=== PATIENT | female | born 1955 | race Caucasian/White ===

== ENCOUNTER 2016-09-06 17:47 | Inpatient (IN) | payer MEDICARE, OTHER ==
[~2016-09-06] VITALS: Ht 157.5 cm; Wt 73.6 kg
--- NOTE | ~2016-09-06 | WRIGHTHP ---
[place], [place] PATIENT HISTORY AND PHYSICAL EXAM NAME: [id number] UNIT #: [id number] ROOM: 312 DOCTOR: RAISA LEONARD MD BIRTHDATE: [birth year] DOS: 09/06/2016 CHIEF COMPLAINT: I cannot sleep. HISTORY OF PRESENT ILLNESS: The patient is [id number] lady with history of schizoaffective disorder. She has been noncompliant with her medicines and has been decompensating with increased psychosis, had not been taking care of her ADLs, not bathing, with very poor hygiene and she has been hallucinating as per report, she was taken to the [facility] and then transferred to Behavioral Health Unit at [facility]. Today seen, she is very disorganized in her thoughts. She is irritable, agitated, very confused, could not give any useful information, is getting agitated and paranoid. She is crying at times. States that she cannot sleep. She has been agitated at times and nondirective. She has been refusing her medicines now she is admitted to rule out any organic factors and also attempt to stabilize on medicines. MEDICAL HISTORY: Hypertension, GERD and seizure disorder. MENTAL STATUS EXAMINATION: The patient is awake, oriented to self, but she could not tell the time and the date. She is disheveled refused to take shower this morning. Poor hygiene. She is confused, very disorganized in her thoughts and behavior, paranoid, very labile and at times seemed responding to unseen. She has a very poor judgment and insight. DIAGNOSIS: Schizoaffective disorder is in exacerbation. PLAN: She has been started on Invega, Remeron and Cogentin. The question would be the compliance, so we should pursue her to take her medicines and follow up also shall try to engage her in fowler milieu as she is more stable. RAISA LEONARD MD CM:HISPHYS:PATIENT HISTORY AND PHYSICAL EXAMINATION [id number] RAISA LEONARD MD 09/07/16 1202 interface
--- NOTE | ~2016-09-06 | PR ---
[place], [place] PROGRESS NOTE NAME: RAHEEL GASTON UNIT #: [id number] ROOM: 312 DOCTOR: MATEUSZ CHURCH BIRTHDATE: [birth year] DOS: 09/12/2016 CHIEF COMPLAINT: She was crying. SUMMARY OF VISIT: The patient was assessed in the dining room where I approached her, and I said are you not hungry because her plate was hardly touched. She started crying and she said I said the wrong thing when I asked her to elaborate; she just repeated I said the wrong thing and was tearful and then will calm down. MENTAL STATUS: Alert and oriented to person, place, I do not know about time. Mood still labile. We have moments of clarity in good conversation and other times just gibberish. PLAN: Discussed with Dr. Hull, we are going to go ahead and increase the Nuedexta to q. 12 hours, see if we can decrease maybe this pseudobulbar affect that she is having. We will continue to try to engage in individual and fowler milieu therapy. Try to redirect her to discharge once stable. OLIVERIO CHURCH CNP CM:PNTRANS 2 MATEUSZ CHURCH 09/12/16921 interface
--- NOTE | ~2016-09-06 | PR ---
[place], [place] PROGRESS NOTE NAME: RAHEEL GASTON UNIT #: [id number] ROOM: 312 DOCTOR: FERMIN CARLISLE MD BIRTHDATE: [birth year] DOS: 09/10/2016 INTERVAL NOTE CHIEF COMPLAINT: "I don't know what to do. I just do not know what to do." SUMMARY OF THE VISIT: The patient was interviewed in the dining area where she once again became very emotional upon approach. Of note, while she seemed to be crying, no tears were in her eyes and nurses report very similar episodes where she seems to be very depressed and despondent, crying, but yet no tears are there. These seemed to be involuntary episodes that are occurring without her control. MENTAL STATUS: She is alert and oriented with time gaps. Mood does seem to be depressed with anxious overtones. There also seems to be a degree of emotional excessive lability that is not under her control. PLAN: I will discontinue Geodon because it can prolong QT. Add the diagnosis of pseudobulbar affect and start Nuedexta 20-10 one tablet daily. I will use Vraylar 1.5 mg at bedtime to decrease the psychosis without the extreme risk of QT prolongation. Engage in individual and fowler milieu activity with the plan to return home or to alternative placement when stable. FERMIN CARLISLE MD CM:PNTRANS [phone] FERMIN CARLISLE MD 09/11/16 0159 interface
--- NOTE | ~2016-09-06 | PR ---
[place], [place] PROGRESS NOTE NAME: [id number] UNIT #: [id number] ROOM: 312 DOCTOR: AISHA GOMES,RAISA BIRTHDATE: [birth year] DOS: SUBJECTIVE: A 61-year-old lady admitted with worsening symptoms of schizoaffective disorder, she is started on Invega and Remeron. Seen today, she is still very disorganized in her thoughts. Could not hold any meaningful conversation, still crying at times, is agitated easy, very confused. She did take her medicines today. MENTAL STATUS EXAM: The patient is awake, still very disorganized in her thoughts. There is thought blocking, could not hold any meaningful conversation at present. PLAN: The patient needs further stabilization, so we shall continue with her medicines and monitor progress. Shall try engage her in fowler milieu when she is more stable. RAISA LEONARD MD CM:PNTRANS [id number] RAISA LEONARD MD 09/08/16 1444 interface
--- NOTE | ~2016-09-06 | PR ---
[place], [place] PROGRESS NOTE NAME: RAHEEL GASTON UNIT #: [id number] ROOM: 312 DOCTOR: FERMIN CARLISLE MD BIRTHDATE: [birth year] DOS: 09/16/2016 INTERVAL NOTE CHIEF COMPLAINT: "I am okay." SUMMARY OF THE VISIT: The patient was interviewed in the dining area where she was eating her breakfast. She appeared to be tearing pancake and was perhaps offering it to unforeseen others underneath the table. She was rather guarded and was not openly engaging with me. Her responses tended to be short and simple. There was no excessive of emotionality, crying, yelling out noted. If anything, she was more dismissive of me visiting her. She was tolerating the medication well. I see no extrapyramidal symptoms, tardive dyskinesia, somnolence, or sedation. MENTAL STATUS: She was alert and oriented to person, place, possibly to time. Mood does seem to be trending towards euthymia. There still seems to be some active psychotic symptoms present. The excessive emotionality seen much less this morning, but I think it tends to wax and wane. Memory is relatively intact. PLAN: I will increase Vraylar from 4.5 to 6 mg at bedtime, maintaining all the other psychotropics, continue to engage her in individual and fowler milieu activity with the plan to step down to a least restrictive environment when psychiatrically stable. FERMIN CARLISLE MD CM:PNTRANS [phone] FERMIN CARLISLE MD 09/16/162058 interface
--- NOTE | ~2016-09-06 | PR ---
[place], [place] PROGRESS NOTE [id number] UN[facility] #: [id number] ROOM: 312 DOCTOR: MATEUSZ CHURCH BIRTHDATE: [birth year] DOS: 09/11/2016 CHIEF COMPLAINT: "Good morning." SUMMARY OF VISIT: The patient interviewed in the dining room where she had finished her breakfast. The patient engaged readily in conversation, kind of limited, one or two-word answers, but were appropriate. MENTAL STATUS: Alert and oriented to person, place. I do not know about time. Mood still seems somewhat depressed, maybe some underlying anxiety. Staff notes that she did not sleep very well last night; however, there were some disturbances on the unit last night and nobody really slept well. We will see how she does tonight and determine if we need to adjust nighttime medications. PLAN: Vraylar was started to help with psychosis, see how she does over the next 24 hours and we can adjust from there. OLIVERIO CHURCH CNP CM:PNTRANS [id number] MATEUSZ CHURCH 09/11/16 2302 interface
--- NOTE | ~2016-09-06 | PR ---
[place], [place] PROGRESS NOTE NAME: RAHEEL GASTON UNIT #: [id number] ROOM: 312 DOCTOR: MATEUSZ CHURCH BIRTHDATE: [birth year] DOS: 09/14/2016 CHIEF COMPLAINT: "Oh I'm not well." SUMMARY OF VISIT: The patient was interviewed in the conference room across in the nurses' station where she was eating breakfast alone, very anxious, agitated, not quite crying, but ramping herself up, soft spoken, everything is wrong, everything is overwhelming. There is nothing we can do to help her, can be very somatic in some of her statements, very difficult to redirect. MENTAL STATUS: Alert and oriented with gaps. There is no alma delia or hypomania. It is just she still seems fixated on things at times not as bad as she was, but still fixated. PLAN: Dr. Hull increased her Vraylar yesterday and changed her Depakote to Depakote ER. I am going to add p.r.n. Ativan to help with this agitation and anxiety that she gets and when she is difficult to redirect, see if we can calm her down a little bit. She is adamant today. There is nothing we can do to help her. We will continue to try to engage in individual and fowler milieu therapy, redirect when possible and go from there. OLIVERIO CHURCH CNP CM:PNTRANS [id number] MATEUSZ CHURCH 09/15/16 0016 interface
--- NOTE | ~2016-09-06 | PR ---
[place], [place] PROGRESS NOTE NAME: RAHEEL GASTON UNIT #: [id number] ROOM: 312 DOCTOR: FERMIN CARLISLE MD BIRTHDATE: [birth year] DOS: 09/09/2016 INTERVAL NOTE CHIEF COMPLAINT: "Everything is wrong, leave me alone. I am not eating. I am not taking any meds, just leave me alone." SUMMARY OF THE VISIT: The patient was attempted to be interviewed as she sat in the quiet room. She had an entire breakfast tray in front of her, but would not eat it. She was very distraught and disturbed. She was not able to respond appropriately to my questions. She was grossly psychotic and delusional and jumped from topic to topic. Her responses were filled with marked delusions and paranoia. Nurses report that she has required several PRNs of Geodon intramuscular with excellent results and wondered whether or not a straight oral Geodon would be beneficial as she seems to be getting more benefit from the Geodon IM than from the straight Invega. MENTAL STATUS: She is alert and oriented to person, place, but not time. Mood is wildly labile. Affect is inappropriate. She is grossly psychotic and delusional, very paranoid. It is hard to ascertain memory as she is so disoriented and disjointed. PLAN: At this point in time, I will discontinue her Invega due to ineffectiveness and discontinue her straight Ativan. I will go ahead and order Geodon 80 mg twice daily. Continue to support and monitor. Engage in individual and fowler milieu activity. We will also explore with hospital social worker the possibility of placement as I am uncertain how much of this is going to clear and how much will be residual psychosis. FERMIN CARLISLE MD CM:PNTRANS 4 22 FERMIN CARLISLE MD 09/09/162121 interface
--- NOTE | ~2016-09-06 | PR ---
[place], [place] PROGRESS NOTE NAME: RAHEEL GASTON UNIT #: [id number] ROOM: 312 DOCTOR: MATEUSZ CHURCH BIRTHDATE: [birth year] DOS: 09/18/2016 CHIEF COMPLAINT: "Good morning." SUMMARY OF VISIT: The patient was assessed in the dining room where she was eating breakfast. Other than saying good morning, the patient did not engage at all in conversation; however, she has been the best that she has been since being here. She was eating her breakfast. She was focusing on that. She does redirect herself and take herself to the room when she becomes tearful. She listened to some of my other conversations with the patients and smiled, therefore what I have written today, she just did not feel like talking. MENTAL STATUS: Alert and oriented with time gaps. Mood is still trending towards euthymic. Affect was appropriate. No alma delia or hypomania. No auditory or visual hallucinations, delusions, or paranoia. PLAN: Her valproic acid level was still subtherapeutic at 35.4 yesterday. However, this is an increase from 9.2 just 10 days before. So, we are trending upward. We will continue to monitor. At this point, I am going to hold her Depakote where it is at and will recheck again most likely in 10 days. The patient continues to be stable, most likely we will discharge to [id number] as early as tomorrow. OLIVERIO CHURCH CNP CM:PNTRANS [phone] MATEUSZ CHURCH 10/23/16 1102 interface
--- NOTE | ~2016-09-06 | PR ---
[place], [place] PROGRESS NOTE NAME: RAHEEL GASTON UNIT #: [id number] ROOM: 312 DOCTOR: FERMIN CARLISLE MD BIRTHDATE: [birth year] DOS: 09/13/2016 INTERVAL NOTE CHIEF COMPLAINT: "I didn't sleep last night." SUMMARY OF THE VISIT: The patient was interviewed in the dining area where she was sitting in front of her breakfast. She engaged readily in reasonable conversation, reporting to me that she did not sleep last night, but this has been a lengthy issue for her even when she was home. Of note is that she carried on a reasonable conversation with me not once crying, not once becoming hysterical. She spoke in a very soft voice and was able to elucidate her thoughts and feelings fairly well. Outside of not sleeping, she voiced no other complaints. MENTAL STATUS: She is alert and oriented with time gaps. Mood does seem to be trending towards euthymia. Affect is more appropriate. There are no symptoms of alma delia or hypomania noted at this time and the psychotic symptoms seem to be dissipating. Memory has some gaps. PLAN: I will increase Vraylar from 3 mg at bedtime to 4.5 mg at bedtime attempting to max out at 6 mg a day to achieve full benefit of the atypical antipsychotic. I will discontinue her regular Depakote and use Depakote ER 1000 mg at bedtime for simplification of her medication regimen and also to add extra sedation at night and less so during the day. We will engage her in individual and fowler milieu activity with the plan to return home or to an alternative placement when stable. DIAGNOSIS: Alzheimer's dementia. FERMIN CARLISLE MD CM:PNTRANS [phone] FERMIN CARLISLE MD 09/16/16 1210 interface
--- NOTE | ~2016-09-06 | DS ---
[place], [place] DISCHARGE SUMMARY NAME: RAHEEL GASTON UNIT #: [id number] ROOM: 312 DOCTOR: MATEUSZ CHURCH OLIVERIO BIRTHDATE: [birth year] DOS: 09/19/2016 HISTORY OF PRESENT ILLNESS: A 61-year-old female with a history of schizoaffective disorder, noncompliant with medications has been decompensating the increased psychosis, not taking care of her ADLs, not bathing, poor hygiene, hallucinating, was taken to [facility], transferred to Behavioral Health Unit at [place]. Initially seen with disorganized thoughts, irritable, agitated, very confused, crying, refusing medications at times, was admitted to rule out organic factors and stabilize the medications. PLAN: She was started on Invega, Remeron and Cogentin eventually ended up taking Vraylar, Klonopin, Depakote, and Nuedexta for the increased emotionality with the underlying neurologic conditions and Remeron for sleep. We used behavioral therapy to redirect her when she became tearful and behavioral and she would remove herself from the situation, calm herself down and then reenter the groups. MEDICAL HISTORY: Hypertension, GERD, seizure disorder. DIAGNOSIS: AXIS I: Schizoaffective disorder with exacerbation. MENTAL STATUS: The patient is alert and oriented to person, place, approximate to time. Mood is euthymic. Affect appropriate. No overt signs of auditory or visual hallucinations, delusions, paranoia, alma delia or hypomania. She is at her baseline at this point in time. PLAN: The patient is being discharged to [facility]. They will need to check her valproic acid level in 10 days and then q.3 months as long as she is on Depakote. We will continue with the Vraylar, the Klonopin for mood lability, Nuedexta for PBA, Remeron for depression, sleep and keep her appetite up. Dr. Hull and myself are around at the facilities so we will follow up with her at the facility. [place], [place] DISCHARGE SUMMARY NAME: RAHEEL GASTON UNIT #: [id number] ROOM: 312 DOCTOR: MATEUSZ CHURCH OLIVERIO BIRTHDATE: [birth year] OLIVERIO CHURCH CNP CM:ALBER 5 11 MATEUSZ CHURCH 09/19/161810 interface
--- NOTE | ~2016-09-06 | PR ---
[place], [place] PROGRESS NOTE [id number] UN[facility] #: [id number] ROOM: 312 DOCTOR: FERMIN CARLISLE MD BIRTHDATE: [birth year] DOS: 09/17/2016 INTERVAL NOTE CHIEF COMPLAINT: "Oh thank you for stopping in." SUMMARY OF THE VISIT: The patient was interviewed in the group therapy room. I inverted her to come into the dining area at which point, she stated that she was hoping to have breakfast there. When I apologized to her that I did not know, she engaged in a very meaningful conversation stating that there is no need for me to apologize and thanking me for coming and visiting her. This was one of the most meaningful conversations I have had with her since her admission here. There is no mood lability, no agitation. She was actually able to engage readily in conversation and be spontaneous in her comments to me. Nurses report a similar trend toward improvement and that overall, she has trended strongly towards euthymia and has been much more redirectable. She is tolerating the current medication regimen well and I see no sedation, somnolence, extrapyramidal symptoms or any other type of side effects. MENTAL STATUS: This morning, she is alert and oriented with some time gaps. Mood does seem to be strongly trending towards euthymia. Affect is much more appropriate. There are no symptoms of hypomania or alma delia. There are no auditory or visual hallucinations. No delusions or paranoia were present. Short term memory has gaps, otherwise she is intact. PLAN: I will recheck a valproic acid level today at 3:00 p.m. that should give me a trough level with her being on the Depakote ER. I will adjust the Depakote accordingly, maintain all of her psychotropics at their current doses at this time with the plan then to discharge when psychiatrically stable. FERMIN CARLISLE MD CM:PNTRANS [phone] FERMIN CARLISLE MD 09/17/168 interface
--- NOTE | ~2016-09-06 | PR ---
[place], [place] PROGRESS NOTE NAME: [id number] UN[facility] #: [id number] ROOM: 312 DOCTOR: MATEUSZ CHURCH OLIVERIO BIRTHDATE: [birth year] DOS: 09/15/2016 CHIEF COMPLAINT: "Good morning." SUMMARY OF VISIT: The patient was assessed in the dining room and then in her room. She did engage in conversation. She can get tearful and dramatic at times, but then she will remove herself to her room. I discussed with nursing. They have been working with her over this weekend with behavior modification where she becomes disruptive, crying, behavioral. She was advised she could not do in the common area around other people and that she would have to isolate herself in her room on her own and the patient has been compliant with this. When she becomes anxious or agitated, she will remove herself from the situation and go to her room until she is calm and then come back out and she voices understanding of this. This is the first time the patient has done this, so the nursing are definitely on the right track with her on this. It should be noted also that they are using p.r.n. Ativan on a regular basis and this seems to take the edge off of her mood lability. Vistaril is not touching her. MENTAL STATUS: She is alert and oriented to person, place, approximate time. There is no alma delia or hypomania. No overt signs of auditory or visual hallucinations. She is still having some mood lability. PLAN: She is currently on Vraylar and we are going to go ahead and change the Depakote to Sprinkles per nursing's request. I am going to get rid of the Vistaril since this is not touching her. I am going to keep the Ativan p.r.n. even though they are using it fairly scheduled right now, but what I am going to do is I am going to add Klonopin 1 mg b.i.d. to see if this will help with her mood lability, take the edge off and then you could have the p.r.n. Ativan to come in underneath if we need to when she becomes anxious. Klonopin, just because it is longer acting and it tends to help more with this type of mood lability. We will continue to do the behavior modifications and redirections and see how she does over the next 24 hours. OLIVERIO CHURCH CNP CM:PNTRANS [phone] MATEUSZ CHURCH 09/15/16 2250 interface
[2016-09-06] MEDS ORDERED: ATORVASTATIN CA20 M1 PO (18:07)
[2016-09-06] MEDS ORDERED: PHENYTEK200 MG PO (18:09)
[2016-09-06] MEDS ORDERED: DAILY VALUE1 EACH PO (18:11)
[2016-09-06] MEDS ORDERED: OMEPRAZOLE20 M2 PO (18:12)
[2016-09-06] MEDS ORDERED: VITAMIN B-121000 MC1 SL (18:13)
[2016-09-06] MEDS ORDERED: BENZTROPINE MESY2 MG PO (18:14)
[2016-09-06] MEDS ORDERED: BISACODYL5 MG PO (18:15)
[2016-09-06] MEDS ORDERED: GOOD NEIGHBOR150 MG PO (18:16)
[2016-09-06] MEDS ORDERED: CALCIUM500 M1 PO (18:17)
[2016-09-06] MEDS ORDERED: DEPAKOTE250 MG PO (18:18)
[2016-09-06] MEDS ORDERED: ALBUTEROL2.5 MG/0.5 INH (18:33)
[2016-09-06 21:06] VITALS: BP 115/83
[2016-09-06 22:04] LABS: BASO # 0.1 10*3/uL (0.0-0.1); BASO % 0.7 % (0.0-1.0); EOS # 0.1 10*3/uL (0.0-0.4); HEMATOCRIT 46.1 % (37.0-47.0); HEMOGLOBIN 15.1 g/dl (12.0-16.0); LYMPH # 4.4 10*3/uL (1.3-4.4); LYMPH % 33.2 % (27.0-41.0); MEAN CELL VOLUME 90.4 fl (81.0-99.0); MEAN CORPUSCULAR HGB 29.6 pg (27.0-31.0); MEAN CORPUSCULAR HGB CONC 32.8 g/dl (33.0-37.0); MEAN PLATELET VOLUME 8.9 fl (9.6-12.3); MONO % 7.7 % (3.0-9.0); NEUT # 7.7 10*3/uL (2.3-7.9); NEUT % 57.1 % (47.0-73.0); PLATELET COUNT AUTOMATED 391 10*3/uL (130-400); RED CELL DISTRI WIDTH 12.8 % (0-14.5); WHITE BLOOD COUNT 13.4 10*3/uL (4.8-10.8)
[2016-09-06 22:24] LABS: ALBUMIN 4.1 gm/dl (3.1-4.5); ALKALINE PHOSPHATASE 119 U/L (45-117); BILIRUBIN, TOTAL 0.3 mg/dl (0.2-1.0); BUN 21 mg/dl (7-24); CARBON DIOXIDE 24 mmol/L (21-32); CHLORIDE 107 mmol/L (98-107); EST GLOM FILT AFRICAN AMERICAN > 60 ml/min; GLUCOSE 119 mg/dL (65-99); POTASSIUM 4.2 mmol/L (3.5-5.1); SGOT/AST 18 IU/L (3-35); SGPT/ALT 31 U/L (12-78); SODIUM 144 mmol/L (136-145); TOTAL PROTEIN 8.7 gm/dL (6.4-8.2)
[2016-09-06 22:29] LABS: HEMOGLOBIN A1c 5.9 % (4.8-5.6)
[2016-09-06 22:30] LABS: THYROID STIM HORMONE (HS) 3.46 uIU/ml (0.358-4.75)
[2016-09-06 22:43] LABS: VITAMIN D, 25-HYDROXY 33.8 ng/mL (30-100)
[2016-09-06 22:57] LABS: FOLIC ACID > 24.00 ng/mL (>5.38)
[2016-09-07 06:42] LABS: BASO # 0.1 10*3/uL (0.0-0.1); BASO % 0.8 % (0.0-1.0); EOS # 0.2 10*3/uL (0.0-0.4); HEMATOCRIT 45.9 % (37.0-47.0); HEMOGLOBIN 15.2 g/dl (12.0-16.0); LYMPH # 4.3 10*3/uL (1.3-4.4); LYMPH % 40.4 % (27.0-41.0); MEAN CELL VOLUME 90.4 fl (81.0-99.0); MEAN CORPUSCULAR HGB 29.9 pg (27.0-31.0); MEAN CORPUSCULAR HGB CONC 33.1 g/dl (33.0-37.0); MEAN PLATELET VOLUME 8.6 fl (9.6-12.3); MONO # 0.9 10*3/uL (0.1-1.0); MONO % 8.3 % (3.0-9.0); NEUT # 5.1 10*3/uL (2.3-7.9); NEUT % 48.1 % (47.0-73.0); PLATELET COUNT AUTOMATED 396 10*3/uL (130-400); RED BLOOD COUNT 5.08 10*6/uL (4.10-5.10); RED CELL DISTRI WIDTH 12.6 % (0-14.5); WHITE BLOOD COUNT 10.7 10*3/uL (4.8-10.8)
[2016-09-07 07:17] LABS: BUN 21 mg/dl (7-24); CARBON DIOXIDE 22 mmol/L (21-32); CHLORIDE 108 mmol/L (98-107); EST GLOM FILT AFRICAN AMERICAN > 60 ml/min; GLUCOSE 142 mg/dL (65-99); POTASSIUM 4.3 mmol/L (3.5-5.1); SODIUM 145 mmol/L (136-145)
[2016-09-07 08:06] VITALS: BP 133/88
[2016-09-07 18:19] LABS: BILIRUBIN 2+ (NEGATIVE); BLOOD NEGATIVE (NEGATIVE); CLARITY CLOUDY (CLEAR); COLOR YELLOW (YELLOW); GLUCOSE NEGATIVE (NEGATIVE); KETONE 1+ (NEGATIVE); LEUKO ESTERASE NEGATIVE (NEGATIVE); NITRITE NEGATIVE (NEGATIVE); PROTEIN 2+ (NEGATIVE); SPECIFIC GRAVITY >= 1.030 (1.005-1.030); UROBILINOGEN 0.2 E.U./dl (0.2-1.0)
[2016-09-07 18:31] LABS: BACTERIA 3+; HYALINE CAST 20-25; URINE REFLEX COMMENT YES (NO)
[2016-09-07 20:02] VITALS: BP 110/71
[2016-09-08 07:52] VITALS: BP 136/72
[2016-09-08 19:54] VITALS: BP 124/75
[2016-09-09 07:53] VITALS: BP 131/77
[2016-09-09] MEDS ORDERED: LEVOTHYROXINE0.05 MG PO (16:56)
[2016-09-09] MEDS ORDERED: PHENYTOIN100 MG PO (17:41)
[2016-09-09 20:19] VITALS: BP 101/56
[2016-09-10 08:09] VITALS: BP 132/72
[2016-09-10 20:00] VITALS: BP 121/86
[2016-09-11 07:59] VITALS: BP 109/72
[2016-09-11 20:00] VITALS: BP 106/56
[2016-09-12 08:30] VITALS: BP 115/77
[2016-09-12 20:00] VITALS: BP 123/70
[2016-09-13 08:17] VITALS: BP 116/72
[2016-09-13 20:00] VITALS: BP 131/67
[2016-09-14 07:48] VITALS: BP 141/74
[2016-09-14 19:52] VITALS: BP 101/60
[2016-09-15 07:56] VITALS: BP 132/76
[2016-09-15 20:10] VITALS: BP 118/68
[2016-09-16 09:30] VITALS: BP 100/65; BP 119/62
[2016-09-16 19:38] VITALS: BP 115/83
[2016-09-17 08:14] VITALS: BP 118/75
[2016-09-17 19:43] VITALS: BP 123/70
[2016-09-18 07:59] VITALS: BP 113/72
[2016-09-18 19:51] VITALS: BP 104/58
[2016-09-19 07:39] VITALS: BP 116/65
[2016-09-19] MEDS ORDERED: BENZTROPINE MESY1 MG PO (08:11)
[2016-09-19] MEDS ORDERED: MIRTAZAPINE15 M2 PO (08:11)
[2016-09-19] MEDS ORDERED: CLONAZEPAM1 MG PO (08:11)
[2016-09-19] MEDS ORDERED: NUED1CAP PO (08:11)
[2016-09-19] MEDS ORDERED: DEPAKOTE ER500 MG PO (08:11)
[2016-09-19] MEDS ORDERED: VRAYLAR6 MG PO (08:11)
== END 2016-09-19 14:00 | disposition other institution (70) | DRG 885 ==
LOC: 3N 17:47
PROVIDERS: Family Medicine; Psychiatry & Neurology Psychiatry
DX: F25.9 Schizoaffective disorder, unspecified (principal); R65.10 Systemic inflammatory response syndrome (SIRS) of non-infectious origin without acute organ dysfunction; K21.9 Gastro-esophageal reflux disease without esophagitis; E78.5 Hyperlipidemia, unspecified; I10 Essential (primary) hypertension; E03.9 Hypothyroidism, unspecified; G40.909 Epilepsy, unspecified, not intractable, without status epilepticus; Z91.14 Patient's other noncompliance with medication regimen; Z79.899 Other long term (current) drug therapy